=== PATIENT | female | born 1970 | race Caucasian/White ===

== ENCOUNTER 2023-03-30 18:46 | Emergency (ER) | payer MEDICAID ==
[~2023-03-30] VITALS: Ht 154.9 cm; Wt 84.1 kg
[2023-03-30 18:48] VITALS: TEMP 98
[2023-03-30] MEDS: LIDOCAINE 5% TRANSDERMAL PATCH TD ONE (22:58)
[2023-03-30] MEDS: IBUPROFEN 600 MG TABLET PO ONE (22:59)
[2023-03-30] MEDS ORDERED: CYCL-448 PO (23:17)
[2023-03-30 23:43] VITALS: BP 143/89; PULSE 75; RESP 18
== END 2023-03-31 02:32 | disposition home or self-care (01) ==
LOC: EMS 18:48
DX: M25.512 Pain in left shoulder (principal); M54.2 Cervicalgia; Z98.890 Other specified postprocedural states; Z90.722 Acquired absence of ovaries, bilateral; V49.88XA Car occupant (driver) (passenger) injured in other specified transport accidents, initial encounter; Y93.89 Activity, other specified; Y92.89 Other specified places as the place of occurrence of the external cause; Y99.8 Other external cause status
CPT/HCPCS: 72040; 99283